=== PATIENT | female | born 1955 | race Caucasian/White ===

== ENCOUNTER 2021-11-03 10:57 | Emergency (ER) | payer MEDICARE, OTHER ==
[~2021-11-03] VITALS: Ht 165.1 cm; Wt 90.7 kg
[2021-11-03] MEDS ORDERED: LIPITOR20 MG PO (11:10)
[2021-11-03] MEDS ORDERED: PREDNISONE20 MG PO (18:03)
[2021-11-03] MEDS ORDERED: HYDROCODON-ACE1 EA10 PO (18:03)
== END 2021-11-03 18:21 | disposition home or self-care (01) ==
LOC: ED 10:57
DX: M54.41 Lumbago with sciatica, right side (principal); Z88.5 Allergy status to narcotic agent; Z88.8 Allergy status to other drugs, medicaments and biological substances; Z79.899 Other long term (current) drug therapy
CPT/HCPCS: 72100; 96374; 96375; 99283-25; A9270; J1100; J1885; J2060

== ENCOUNTER 2023-07-20 19:00 | Emergency (ER) | payer MEDICARE, OTHER ==
[~2023-07-20] VITALS: Ht 165.1 cm; Wt 90.0 kg
[~2023-07-20 19:00] MED LIST: HYDROCODON-ACE1 EA10 PO; LIPITOR20 MG PO; PREDNISONE20 MG PO
[2023-07-20] MEDS ORDERED: NEOMYCIN/POLYMYXIN/DEXAMETH OPTH SUSPENSION BOTTLE OS ONE (19:45)
[2023-07-20] MEDS ORDERED: MAXITROL EYE DRO5 ML OPTH (19:50)
[2023-07-20 20:04] VITALS: BP 145/69
== END 2023-07-20 20:06 | disposition home or self-care (01) ==
LOC: ED 19:00
DX: H10.9 Unspecified conjunctivitis (principal); Z88.5 Allergy status to narcotic agent; Z88.8 Allergy status to other drugs, medicaments and biological substances; Z79.899 Other long term (current) drug therapy